=== PATIENT | female | born 1975 | race American Indian/Alaskan Native ===

== ENCOUNTER 2017-04-28 18:16 | Emergency (ER) | payer BC ==
[2017-04-28 18:24] VITALS: BP 119/74
[2017-04-28 18:48] LABS: Bilirubin,Urine NEG (Negative); Blood,Urine MOD (Negative); Ketones,Urine NEG (Negative); Leukocyte Esterase,Urine SM (Negative); Mucus,Urine 1+ /HPF; Nitrite,Urine NEG (Negative)
[2017-04-28 19:05] LABS: Basophils % (Auto) 0.5 % (0.0-1.8); Eosinophils % (Auto) 1.1 % (0.0-4.3); Hematocrit 36.6 % (30.3-42.9); Mean Corpuscular HGB Conc 33 % (30-34); Mean Corpuscular Hemoglobin 28 pg (28-32); Mean Corpuscular Volume 84 fl (79-97); Platelet Count 239 K/mm3 (140-440); Red Blood Count 4.35 M/mm3 (3.65-5.03); Red Cell Distribution Width 14.2 % (13.2-15.2); White Blood Count 7.7 K/mm3 (4.5-11.0)
[2017-04-28 19:10] LABS: Anion Gap 18 mmol/L; BUN/Creatinine Ratio 18; Blood Urea Nitrogen 9 mg/dL (7-17); Calcium 9.3 mg/dL (8.4-10.2); Carbon Dioxide 23 mmol/L (22-30); Chloride 99.9 mmol/L (98-107); Glucose 75 mg/dL (65-100); Potassium 3.8 mmol/L (3.6-5.0); Sodium 137 mmol/L (137-145)
--- NOTE | 2017-04-28 19:42 | Ultrasound Report ---
FINAL REPORT EXAM: US OB > = 14 WEEKS FETUS HISTORY: red vag discharge abd pain and pressure TECHNIQUE: Obstetrical sonographic imaging Comparison: None FINDINGS: Single live intrauterine gestation in breech presentation. Posterior grade 0 placenta without previa identified. Cervical length measures 3.8 centimeters. heart rate measures 155 beats per minute. Subjective ISABELLE is normal. measurements with estimated gestational age as follows: Biparietal diameter 3.8 centimeters, 17 weeks 1 day Abdominal circumference 10.62 centimeters, 16 weeks 4 days Head circumference 13.1 centimeters, 16 weeks 6 days Femur length 2.3 centimeters, 17 weeks 0 days. Average estimated gestational age sonographically is 16 weeks 6 days with estimated due date of 10/07/2017. Per the Hadlock criteria, estimated weight of 169 grams +/-25 grams, 57th percentile. Cephalic index 83.3. HC/AC 1.24 anatomic survey cannot be performed due to early gestational age. Within the posterior lower uterine body at the cervical junction there is a 6 centimeter heterogeneous somewhat cystic mass most compatible with a fibroid. IMPRESSION: Single live intrauterine gestation in breech presentation at 16 weeks 6 days with estimated due date of 10/07/2017. heart rate measures 155 beats per minute. Posterior placenta without previa. Subjective ISABELLE is normal. Complex somewhat posterior lower uterine body mass compatible with fibroid. It is unknown if this will interfere with vaginal delivery based on today's exam but should be further considered.
== END 2017-04-28 22:21 | disposition left against medical advice (07) ==
LOC: ED 18:16
DX: N89.8 Other specified noninflammatory disorders of vagina (principal); Z53.21 Procedure and treatment not carried out due to patient leaving prior to being seen by health care provider
CPT/HCPCS: 36415; 76805; 80048; 81001; 85025